=== PATIENT | female | born 1945 | race Caucasian/White ===

== ENCOUNTER → 2017-01-20 | Outpatient (CLI) | payer OTHER, MEDICARE | LOC: FIMAGING 07:30 | PROVIDERS: ATTEND Radiology Diagnostic Radiology | DX: I83.811 Varicose veins of right lower extremity with pain (principal); I83.92 Asymptomatic varicose veins of left lower extremity ==

== ENCOUNTER 2017-05-27 12:19 | Emergency (ER) | payer OTHER, MEDICARE ==
[2017-05-27] MEDS ORDERED: ASPIRIN 81 MG CHEWABLE TAB PO ONE (12:24)
--- NOTE | 2017-05-27 12:31 | CPEKG ---
Heart Rate: 73 RR Interval: 822 P-R Interval: 152 QRSD Interval: 102 QT Interval: 428 QTC Interval: 472 P [place]: 52 QRS [place]: 80 T Wave [place]: 60 EKG Severity - NORMAL ECG - EKG Impression: SINUS RHYTHM Electronically Signed By: Wes Cooney 31-May-2017 14:49:43
[2017-05-27 12:33] VITALS: TEMP 98
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
[2017-05-27 12:52] LABS: % IMMATURE GRANULYOCYTES 0.2 % (0.0-1.1); ABSOLUTE IMMATURE GRANULOCYTES 0.01 10^3/uL (0.00-0.10); ADD DIFF? NO; ADD MORPH? NO; ADD SCAN? NO; ATYPICAL LYMPHOCYTE FLAG 30 (0-99); FRAGMENT RBC FLAG 0 (0-99); HEMATOCRIT 40.1 % (38.0-47.0); HEMOGLOBIN 13.8 g/dL (12.6-16.3); LEFT SHIFT FLG 0 (0-99); LIPEMIA HEMOLYSIS FLAG 90 (0-99); MEAN CELL HEMOGLOBIN 32.5 pg (27.9-34.1); MEAN CELL HEMOGLOBIN CONCENTR. 34.4 g/dL (32.4-36.7); MEAN CELL VOLUME 94.6 fL (81.5-99.8); MEAN PLATELET VOLUME 9.1 fL (8.7-11.7); PLATELET CLUMPS FLAG 0 (0-99); PLATELET COUNT 302 10^3/uL (150-400); RED BLOOD CELL COUNT 4.24 10^6/uL (4.18-5.33); RED CELL DISTRIBUTION WIDTH 12.6 % (11.5-15.2)
[2017-05-27 13:07] LABS: INR 1.03 (0.83-1.16); PROTIME(PATIENT) 13.2 SEC (12.0-15.0)
[2017-05-27 13:08] LABS: APTT 25.8 SEC (23.0-38.0)
[2017-05-27 13:09] LABS: ANION GAP 12 mEq/L (8-16); CALCIUM 9.2 mg/dL (8.5-10.4); CARBON DIOXIDE 23 mEq/l (22-31); CHLORIDE 101 mEq/L (97-110); CREATININE 0.6 mg/dL (0.6-1.0); GLOMERULAR FILTRATION RATE > 60; GLUCOSE 90 mg/dL (70-100); POTASSIUM 4.3 mEq/L (3.5-5.2); SODIUM 136 mEq/L (134-144)
[2017-05-27 13:24] LABS: CREATINE KINASE-MB FRACTION 2.67 ng/mL (0.00-4.55); TROPONIN I < 0.012 ng/mL (0.000-0.034)
[2017-05-27 13:42] VITALS: BP 138/94; PULSE 78; RESP 18; O2SAT 94
== END 2017-05-27 13:39 | disposition home or self-care (01) ==
LOC: CED 12:19
DX: R07.89 Other chest pain (principal); J45.909 Unspecified asthma, uncomplicated; Z87.891 Personal history of nicotine dependence; Z79.82 Long term (current) use of aspirin
CPT/HCPCS: 71010-PO; 72050-PO; 80048-PO; 82550-PO; 82553-PO; 84484-PO; 85025-PO; 85378-PO; 85610-PO; 85730-PO

== ENCOUNTER → 2017-05-27 | Outpatient (CLI) | payer OTHER, MEDICARE | LOC: CLAB 12:01 | PROVIDERS: ATTEND Physician Assistant Surgical | DX: M54.2 Cervicalgia (principal); Z98.1 Arthrodesis status | CPT/HCPCS: 72050-PO ==

== ENCOUNTER 2017-06-05 17:12 | Emergency (ER) | payer OTHER, MEDICARE ==
[2017-06-05 17:28] VITALS: RESP 18; TEMP 98.8
--- NOTE | 2017-06-05 18:00 | EDPHY ---
H & P Time Seen by Provider: 06/05/17 17:17 HPI/ROS: 71-year-old female presents complaining of redness around her incision site. She had a surgical procedure done 2 days ago, TuesdayJune 03 to remove a small mass and/or scar tissue from her upper abdomen. She states she noticed that evening that it felt itchy and red. She presents today requesting that we take the stitches out because she believes she may be having an allergic reaction to them. She has been taking cephalexin. She denies fevers or chills she denies discharge from the wound. Review of systems As per HPI General no fever no chills no weakness HEENT no eye pain no eye discharge. No eye redness, no sore throat Respiratory no cough, no shortness of breath Cardiac no chest pain, no peripheral edema GI no abdominal pain, no diarrhea, no constipation, no nausea, no vomiting no flank pain, no hematuria, no dysuria Musculoskeletal no myalgias, no joint pain Heme no easy bruising, no easy bleeding Endo no polyuria, no polydipsia Skin positive rashes, no pruritus Neuro no syncope, no dizziness, no headaches Psych is no suicidal ideation, no homicidal ideation Past Medical/Surgical History: No history of diabetes Social History: Denies alcohol or drug use Smoking Status: Former smoker Physical Exam: 71-year-old female alert and oriented no acute distress nontoxic appearance afebrile Atraumatic normocephalic Neck supple Lungs clear to auscultation bilaterally Heart regular rate and rhythm without murmur or gallop Abdomen-nondistended, bowel sounds present Upper abdomen with 3 cm sutured wound with circumferential erythema, no drainage , no fluctuance Extremities no cyanosis clubbing or edema Constitutional: Initial Vital Signs Temperature (C) 37.1 C 06/05/17 17:26 Heart Rate 73 06/05/17 17:26 Respiratory Rate 18 06/05/17 17:26 Blood Pressure 147/107 H 06/05/17 17:26 O2 Sat (%) 96 06/05/17 17:26 O2 Delivery Mode Room Air Allergies/Adverse Reactions: doxycycline [Doxycycline] Allergy (Intermediate, Verified 10/09/15 14:01) ASTHMA, HIVES fluticasone propionate [From Advair Diskus] Allergy (Intermediate, Verified 04/17 14:01) ASTHMA Penicillins Allergy (Intermediate, Verified 10/09/15 14:01) HIVES AND ASTHMA salmeterol xinafoate [From Advair Diskus] Allergy (Intermediate, Verified 14:46) ASTHMA PET DANDER Allergy (Uncoded 10/09/15 14:01) ASTHMA Home Medications: Medication Instructions Recorded Albuterol Sulfate [Albuterol 2 gm IH Q6 PRN 05/19/15 Inhaler Hfa] Cholecalciferol Vit D3 [Vitamin D3 2,000 units PO DAILY 05/19/15 (*)] FLUDROCORTISONE ACETATE 0.05 mg PO DAILY 05/19/15 Furosemide [Lasix 20 MG (*)] 20 mg PO DAILY 05/19/15 Herbals/Supplements -Info Only 1 ea PO DAILY 05/19/15 Aspirin EC 81 mg (OTC) 10/09/15 Clindamycin HCl [Clindamycin] 300 mg PO TID #30 cap 06/05/17 Medical Decision Making ED Course/Re-evaluation: Patient seen and evaluated for rash around her recent surgical incision. Differential diagnosis Local allergy, wound infection Patient has been on cephalexin it is unclear whether this could be true infection or allergy to something such as the tape or cleaning solution used. The sutures appear to be Ethilon. Impression/plan Change cephalexin to clindamycin for better MRSA coverage Advised patient to see her surgeon as soon as possible Departure - Departure Disposition: Home, Routine, Self-Care Clinical Impression: Rash, Wound infection after surgery Condition: Good Instructions: Wound Infection (ED) Additional Instructions: Call and see your surgeon as soon as possible. Keep wound clean and dry. Referrals: SANDER FERNANDEZ [Primary Care Provider] - As per Instructions Prescriptions: Clindamycin HCl [Clindamycin] 300 mg PO TID #30 cap
[2017-06-05 18:12] VITALS: BP 138/88; PULSE 74; O2SAT 97
== END 2017-06-05 18:10 | disposition home or self-care (01) ==
LOC: CED 17:12
DX: T81.4XXA Infection following a procedure, initial encounter (principal); Z79.82 Long term (current) use of aspirin; Z87.891 Personal history of nicotine dependence; Y82.8 Other medical devices associated with adverse incidents